=== PATIENT | female | born 1965 | race Caucasian/White ===

== ENCOUNTER 2023-02-06 05:55 | Observation (INO) ==
--- NOTE | 2023-01-24 09:05 | PAT Medication Instructions ---
Medication Instructions Date of Service January 24, 2023 Home Medications amlodipine 5 mg-benazepril 10 mg capsule 1 cap PO QAM cholecalciferol (vitamin D3) 50 mcg (2,000 unit) capsule 50 mcg PO QAM cyanocobalamin (vitamin B-12) 1,000 mcg/mL injection solution 1,000 mcg IM Q30D metoprolol succinate 50 mg tablet,extended release 24 hr 50 mg PO QAM omeprazole 20 mg capsule,delayed release 20 mg PO QAM aspirin 81 mg tablet,delayed release 81 mg PO QAM calcium carbonate 600 mg-vitamin D3 5 mcg (200 unit) tablet 1 tab PO QAM fluticasone fur. 100 mcg-umeclid 62.5 mcg-vilant 25 mcg inhalat.powder (Trelegy Ellipta) 1 inh inhalation QAM lisinopril 20 mg tablet 20 mg PO QAM tirzepatide 5 mg/0.5 mL subcutaneous pen injector (Mounjaro) 5 mg subcut Q7D ASK your prescriber and surgeon aspirin 81 mg tablet,delayed release 81 mg PO QAM DO NOT take the morning of surgery amlodipine 5 mg-benazepril 10 mg capsule 1 cap PO QAM cholecalciferol (vitamin D3) 50 mcg (2,000 unit) capsule 50 mcg PO QAM cyanocobalamin (vitamin B-12) 1,000 mcg/mL injection solution 1,000 mcg IM Q30D calcium carbonate 600 mg-vitamin D3 5 mcg (200 unit) tablet 1 tab PO QAM lisinopril 20 mg tablet 20 mg PO QAM Take morning of surgery With a small sip of water, OTHERWISE NOTHING TO EAT OR DRINK AFTER MIDNIGHT: metoprolol succinate 50 mg tablet,extended release 24 hr 50 mg PO QAM omeprazole 20 mg capsule,delayed release 20 mg PO QAM fluticasone fur. 100 mcg-umeclid 62.5 mcg-vilant 25 mcg inhalat.powder (Trelegy Ellipta) 1 inh inhalation QAM Other Notes Stop 7 days before surgery tirzepatide 5 mg/0.5 mL subcutaneous pen injector (Mounjaro) 5 mg subcut Q7D If you have any questions please call us at [phone] or [phone] or [phone] or [phone]
--- NOTE | 2023-01-26 11:17 | Anesthesiology Consultation ---
Date of Service January 26, 2023 Assessment & Plan (1) Encounter for pre-operative examination: - Check BSG AM DOS - COVID screening: Per assessment on 01/26: No known COVID-19 positive contacts or current COVID-19 related symptoms. No recent Covid positive test result. - Mounjaro instructions: Patient taking for prediabetes. She was advised to hold 7 days prior to surgery. Chart Review Chart Review: Acceptable Risk for Surgery and Patient seen in Pre Admission Testing Teaching & Discussion Pre-Anesthesia Teaching/Discussion Notes: Instructed NPO after midnight before surgery,except medications with 15 cc of water. Medication instructions provided according to the PAT guidelines. History Surgery Operation Date: 02/06/23 08:30 Proposed Procedures p Laparoscopic Right Radical Hand Assisted Nephrectomy - Rudy Hairston MD Height/Weight Height: 5 ft 4 in Weight: 115 kg Allergies Allergy/AdvReac Type Severity Reaction Status Date / Time Sulfa (Sulfonamide Allergy Mild Rash Verified 01/23/23 16:31 Antibiotics) Medications Home Medications Medication Instructions Recorded Confirmed Last Taken amlodipine 5 mg-benazepril 10 mg 1 cap PO QAM 11/14/22 01/23/23 01/14/23 capsule cholecalciferol (vitamin D3) 50 50 mcg PO QAM 11/14/22 01/23/23 01/14/23 mcg (2,000 unit) capsule cyanocobalamin (vitamin B-12) 1,000 mcg IM Q30D 11/14/22 01/23/23 12/23/22 1,000 mcg/mL injection solution metoprolol succinate 50 mg 50 mg PO QAM 11/14/22 01/23/23 01/14/23 tablet,extended release 24 hr omeprazole 20 mg capsule,delayed 20 mg PO QAM 11/14/22 01/23/23 01/14/23 release aspirin 81 mg tablet,delayed 81 mg PO QAM 01/10/23 01/23/23 01/12/23 release calcium carbonate 600 mg-vitamin 1 tab PO QAM 01/10/23 01/23/23 01/14/23 D3 5 mcg (200 unit) tablet fluticasone fur. 100 mcg-umeclid 1 inh inhalation QAM 01/10/23 01/23/23 01/14/23 62.5 mcg-vilant 25 mcg inhalat.powder (Trelegy Ellipta) lisinopril 20 mg tablet 20 mg PO QAM 01/10/23 01/23/23 01/14/23 tirzepatide 5 mg/0.5 mL 5 mg subcut Q7D 01/10/23 01/23/23 01/12/23 subcutaneous pen injector (Mounjaro) Past Medical History Medical History (Updated 01/26/23 @ 11:32 by Latoya Qiu) GERD (gastroesophageal reflux disease) History of kidney cancer Recently dx Hypertension Morbid obesity with BMI of 40.0-44.9, adult Pre-diabetes Taking Mounjaro Sleep apnea No device Exercise / Class Metabolic Activity III < 4 Walking/Shop/Light housework (one FS (no CP, + SOB)) Past Family History Family History Mother Skin cancer Diabetes Hypertension Father Skin cancer Hypertension Other No family history of adverse response to anesthesia Past Surgical History Surgical History History of bilateral tubal ligation History of endometrial ablation Hx of colonoscopy Colonoscopy (01/15/23): MAC at [facility] [place] teeth extracted Past Anesthesia History No Family Hx of Anesthesia Complications and Other (post-op chills/dizziness/lightheadedness x1 episode (after most procedure/GHS EUS)) History of PONV No Hx of PONV and No Hx of Motion Sickness Social History Smoking Status: Current every day smoker tobacco type: cigarettes Do You Dip or Chew Tobacco: No Smoking End Date: Recently quit 01/23/23 (previous 10-12 cigs/day) Hx Alcohol Use: Yes Alcohol type: wine alcohol intake frequency: holidays/special occasions only Hx Substance Use: No substance use type: does not use Review of Systems Patient denies chest pain, shortness of breath, fever, chills, cough, wheezing, palpitations. Physical Exam Vital Signs VITALS BP 116/75 P 69 TEMP 98.0 SP02 97%RA RESP 16 PHYSICAL Full cervical extension range of motion. Full TMJ range of motion. TMD 3.5 finger breaths Mallampati Score 2 Dentition: missing sides Lungs: clear throughout to auscultation Cardiac: regular rate and rhythm, no murmurs noted Spine: normal Carotid arteries: negative bruit Extremities: no LE edema Short, thick neck Lab Results Anesthesia Preop Results Results Anesthesia Widget: WBC 10.01 K/ul (4.8-10.8) 01/26/23 Hgb 13.9 g/dl (12.0-16.0) 01/26/23 Hct 41.9 % (37.0-47.0) 01/26/23 Plt 237 K/uL (130-400) 01/26/23 Na 139 mmol/L (136-145) 01/26/23 K 4.3 mmol/L (3.5-5.1) 01/26/23 Cl 105 mmol/L (98-107) 01/26/23 CO2 27 mmol/L (21-32) 01/26/23 BUN 16 mg/dl (6-23) 01/26/23 Creat 0.75 mg/dl (0.6-1.2) 01/26/23 Glucose Level 74 mg/dl (70-99(Fasting)) 01/26/23 PT 10.3 Seconds (9.0-12.0) 12/19/22 PTT 29.0 Seconds (21.0-31.0) 12/19/22 INR 0.9 (0.9-1.1) 12/19/22 Blood Type B Positive 01/26/23 Antibody Screen NEGATIVE 01/26/23 Testing Electrocardiogram Date: 01/26/23 Findings: + NSR @ (66) Other Testing CT Abd/Pelvis Date: 11/03/22 Large heterogeneous enhancing mass involving the right kidney measuring 8.1 x 8.2 x 9.7 cm. Finding is most suggestive of underlying malignancy such as renal cell carcinoma and should be considered renal cell carcinoma until proven otherwise.Shotty periportal adenopathy, largest periportal lymph node 2.4 cm maximal diameter. 8 mm hyperattenuating exophytic Focus inferior pole cortex of the left kidney posteriorly. This may represent a Cyst with proteinaceous debris or blood that does not demonstrate significant enhancement on arterial or portal vein phase. CT Chest/lung Date: 10/26/22 6 x 5 mm maximum crosssection nodulelike atelectasis in the right costophrenic angle. The remainder of the lung cline are clear with no other indications of possible nodule. Large airways are patent. Right renal lesion, hyperdense cyst versus neoplasm. CT of the abdomen and pelvis recommended using the renal mass protocol.
[2023-02-06] MEDS ORDERED: LR 15ML/HR IV SCH (06:00)
[2023-02-06] MEDS ORDERED: PROPOFOL IV EMULSION 10 MG/ML 20 ML VIAL IV ONE (06:36)
[2023-02-06] MEDS ORDERED: MIDAZOLAM HCL 1 MG/ML 2ML VIAL ONE (06:36)
[2023-02-06] MEDS ORDERED: ROCURONIUM BROMIDE 10 MG/ML 5 ML VIAL IV ONE (06:36)
[2023-02-06] MEDS ORDERED: LIDOCAINE 2% 2 ML VIAL/AMP(20MG/ML) INFIL ONE (06:36)
[2023-02-06] MEDS ORDERED: fentaNYL citrate PF 100 MCG/2 ML VIAL ONE ×2 (06:36→09:19)
[2023-02-06] MEDS ORDERED: DEXAMETHASONE SOD INJ 4 MG/ML VIAL ONE (06:36)
[2023-02-06] MEDS ORDERED: ONDANSETRON INJ 2 MG/ML 2 ML VIAL ONE (06:36)
[2023-02-06] MEDS ORDERED: SUGAMMADEX SODIUM 200 MG/2 ML VIAL IV ONE (06:40)
[2023-02-06] MEDS ORDERED: MANNITOL 25% 12.5 GM/50 ML VIAL IV ONE (06:45)
[2023-02-06] MEDS ORDERED: HEPARIN SOD (PORCINE) 1000 UNIT/ML ONE (06:49)
[2023-02-06] MEDS ORDERED: KETAMINE 50 MG/5 ML SYRINGE ONE (06:51)
[2023-02-06] MEDS ORDERED: PROMETHAZINE HCL 6.25 MG in SODIUM CHLORIDE 0.9% 50 ML IV PRN (07:06)
[2023-02-06] MEDS ORDERED: ATROPINE SULFATE 0.1 MG/ML 10ML SYR IV PRN (07:06)
[2023-02-06] MEDS ORDERED: ONDANSETRON INJ 2 MG/ML 2 ML VIAL IV PRN ×2 (07:06→11:31)
--- NOTE | 2023-02-06 07:27 | History & Physical Bridge Note ---
Date of Service February 06, 2023 History & Physical Bridge Note I have examined the patient, reviewed the History & Physical and in the interval since the performance of the History & Physical I have noted the following changes of clinical significance: no changes noted
[2023-02-06] MEDS ORDERED: BUPIVACAINE 0.5 % 5 MG/1 ML MPF 30ML VIAL ONE (07:30)
[2023-02-06] MEDS ORDERED: SURGICEL ABSORB HEMOSTAT 2IN X 14IN TOP ONE (08:38)
[2023-02-06] MEDS ORDERED: ePHEDrine sulfate 50 MG/ML AMP ONE (08:46)
--- NOTE | 2023-02-06 10:15 | Operative Report ---
PG Post Operative Report Pre & Post Diagnosis Operation Date: 02/06/23 07:30 Pre-Op Diagnosis: Right Clear Cell Renal Cell Carcinoma Post-Op Diagnosis: Right Clear Cell Renal Cell Carcinoma I identified the patient and participated in the time-out.: Yes Procedure Operation Date: 02/06/23 07:30 Actual Procedures p Laparoscopic Hand Assisted Right Radical Nephrectomy(Right) - Rudy Hairston MD Surgeon Rudy Hairston MD Cell Room Operator Aria Arshad Estimated Blood Loss 50 Findings Consistent with Post-Op Diagnosis Specimens Right kidney Description of Procedure Patient was identified in the preoperative holding area, appropriate informed consents reviewed and completed and she was transferred to the operating suite. Upon arrival she received appropriate preoperative antibiotics. She was placed in the left side down right side up lateral decubitus position and padded and braced appropriately. Bed was flexed. Her imaging was brought up on the in room monitors. After induction of general anesthesia tentative port locations were marked on the skin. A Mitchell style right lower quadrant incision was made and carried through the superficial tissues until the external oblique fascia was identified. This was opened sharply for the length of the incision (8 cm). I then dissected through the internal oblique fascia in the same fashion. Ultimately opened the transversalis and sharply pierced into the peritoneum and performed a finger sweep. There was omentum immediately below my peritoneal opening. I extended my peritoneal opening for the length of the incision before placing a GelPort. We then insufflated the abdomen. A 12 mm port was placed through the GelPort for full inspection. She has a large liver which was draping over the tentative surgical field. This did not impact port placement and 2 additional 12 mm ports were placed in the mid costal line with the superior port approximately 5 cm below the costal margin and the other approximately 8 cm inferior to the other port. I ultimately placed a 5 mm liver retracting port in the subxiphoid space as well as a 12 mm clothing sales assistant port closer to the midline approximately 8 cm above the umbilicus. We then began our dissection. I medialized the colon by incising the white line of Toldt and rotating the kidney medially. This exposed the underlying duodenum which was then kocherized. The IVC was immediately identified behind the duodenum. I could identify the gonadal vein piercing into the IVC and I was able to dissect lateral to it and onto a plane on the psoas muscle. I was able to then elevate the kidney and dissect up the lateral border of the IVC until I encountered the inferior aspect of the renal vein. The renal vein was then dissected and exposed. A passage was made superior to it. I then palpated the renal artery immediately posterior to the renal vein. I collected these and I packet of tissue and skeletonized them. I then passed a stapler device and stapled the artery and vein en bloc. An additional staple load was placed between the superior medial aspect of the kidney and the adrenal gland. We then continued our dissection around the lateral portion of the kidney by incising the remaining peritoneal attachments as well as mobilizing the liver off of the superior and anterior portion of the kidney and incising the peritoneum. At the inferior cone of Gerota's fascia I was able to control the ureter and the remaining fat with a solitary staple load. At that point we freed her kidney by incising the Gerota's attachments around the perimeter of the kidney. The specimen was extracted through the HandPort. Hemostasis was excellent. The specimen was passed off the table for pathological analysis. We then closed the 12 mm ports utilizing a 0 Vicryl and a Osmar-Sunil device. The main incision was closed in multiple layers with reapproximation of the transversalis fascia utilizing a running 0 Vicryl followed by closure of the external oblique and internal oblique fascia is respectively with the 0 Vicryl each. All incisions were infiltrated with half percent Marcaine and closed with 4-0 Monocryl. Dermabond was placed over the incisions. She was reversed of anesthesia and taken the recovery room in stable condition. A Marcelino catheter was left in place. There were no complications. Aria Arshad assisted from incision to closure I attest to the content of the Intraoperative Record and any orders documented therein. Any exceptions are noted below.
[2023-02-06 10:23] LABS: Basophils # (auto) 0.03 K/uL (0.00-0.20); Basophils % (auto) 0.3 %; Eosinophils # (auto) 0.12 K/uL (0.00-0.50); Eosinophils % (auto) 1.1 %; Hematocrit (blood only) 40.8 % (37.0-47.0); Hemoglobin 13.4 g/dl (12.0-16.0); Immature Granulocytes % (auto) 0.9 %; Lymphocytes # (auto) 1.38 K/uL (1.20-3.40); Lymphocytes % (auto) 12.2 %; Mean Corpuscular Hemoglobin 27.9 pg (25.0-34.0); Mean Corpuscular Hgb Conc 32.8 g/dL (32.0-36.0); Mean Platelet Volume 10.1 fL (9.4-12.4); Monocytes % (auto) 2.7 %; Neutrophils # (auto) 9.37 K/uL (1.40-6.50); Neutrophils % (auto) 82.8 %; Platelet Count 216 K/uL (130-400); RDW Coefficient of Variation 13.8 % (11.5-14.5); RDW Standard Deviation 42.8 fL (36.4-46.3)
[2023-02-06] MEDS: HYDROmorphone INJ 1 MG/ML SYRINGE IV PRN ×4 (10:27→10:42)
[2023-02-06 10:47] LABS: Calcium 8.6 mg/dl (8.6-10.3); Creatinine Clr Calc Pharmacy 75.9 ml/min; Est GFR (African American) 71.4 ml/min; Est GFR (Non-African American) 61.6 ml/min; Potassium 4.7 mmol/L (3.5-5.1)
[2023-02-06] MEDS ORDERED: oxyCODONE HCL IR 5 MG TAB (IMMEDIATE RELEASE) PO PRN ×2 (11:31)
[2023-02-06] MEDS ORDERED: MoRPHine SULFATE 2 MG/ML CARP IV PRN (11:31)
[2023-02-06] MEDS ORDERED: MoRPHine SULFATE 4 MG/ML 1 ML CARP\\VIAL IV PRN (11:31)
[2023-02-06] MEDS ORDERED: PHARMACY GLYCEMIC MGMT CONSULT PRN (11:31)
[2023-02-06] MEDS ORDERED: GLUCOSE 10 TAB/TUBE PO PRN (11:45)
[2023-02-06] MEDS ORDERED: GLUCAGON FOR INJ 1 MG VIAL IM PRN (11:45)
[2023-02-06] MEDS ORDERED: CARBOHYDRATES FOR HYPOGLYCEMIA PO PRN (11:45)
[2023-02-06] MEDS ORDERED: DEXTROSE 50% 50 ML SYRINGE IV PRN (11:45)
[2023-02-06] MEDS ORDERED: GLUCOSE 40% GEL 15 GM TUBE PO PRN (11:45)
--- NOTE | 2023-02-06 11:47 | Pharmacy Report ---
Pharmacy Glycemic Short Note 2 - Date of Service February 06, 2023 - Glycemic Short BSG Results (Last 24 hours): 02/06/23 02/06/23 06:29 09:56 Glucose 114 H POC Glucose 111 H OUTPATIENT ANTIDIABETIC REGIMEN: * Mounjaro 5 mg SC weekly HbA1c ordered for 02/07/23 ASSESSMENT: * is a 57 year old female POD #0 s/p right radical nephrectomy * Received 4 mg IV dexamethasone in OR * Reported history of prediabetes, HbA1c is pending for tomorrow * Preop BSG of 111 mg/dL * Clear liquid diet ordered at this time PLAN FOR INPATIENT GLYCEMIC CONTROL: * Basal insulin * hold at this time * Bolus insulin * NovoLog per scale ACHS or Q6hrs while NPO * Goal Range: Low 110 mg/dL - High 140 mg/dL * Correction Factor: 30 mg/dL/unit * Nutritional / Prandial insulin per carb ratio of 1 unit per 10 grams CHO consumed
[2023-02-06] MEDS: LACTATED RINGER'S 1,000 ML IV SCH ×2 (12:03→22:11)
[2023-02-06] MEDS: INSULIN ASPART PER UNIT CHARGE SC SCH ×3 (12:37→21:12)
[2023-02-06] MEDS: ACETAMINOPHEN 325 MG TAB PO SCH ×3 (12:40→23:38)
--- NOTE | 2023-02-06 14:06 | Anesthesiology Progress Note ---
Date of Service February 06, 2023 Anesthesia Post Procedure Vital Signs Vital Signs: Temp Pulse Pulse Resp BP Pulse Ox O2 Del Method 02/06/23 13:20 36.6 C 75 16 154/81 H 96 Nasal Cannula 02/06/23 12:30 Nasal Cannula 02/06/23 12:23 36.4 C L 73 16 149/77 H 97 Nasal Cannula 02/06/23 11:50 36.4 C L 75 14 133/72 95 Nasal Cannula 02/06/23 11:20 36.8 C 80 16 131/73 94 Nasal Cannula 02/06/23 11:00 36.5 C 79 14 122/74 93 Nasal Cannula 02/06/23 10:50 80 13 121/61 93 Nasal Cannula 02/06/23 10:40 79 17 125/76 90 Nasal Cannula 02/06/23 10:30 83 17 125/70 93 Oxymask 02/06/23 10:20 84 25 H 123/71 94 Oxymask 02/06/23 10:10 83 24 122/57 L 93 Oxymask 02/06/23 10:00 82 23 116/57 L 94 Oxymask 02/06/23 09:51 37.0 C 81 26 H 104/57 L 91 Oxymask 02/06/23 06:28 36.8 C 87 18 154/76 H 92 Room Air O2 Flow Rate 02/06/23 13:20 2 02/06/23 12:30 4 02/06/23 12:23 2 02/06/23 11:50 4 02/06/23 11:20 4 02/06/23 11:00 4 02/06/23 10:50 4 02/06/23 10:40 4 02/06/23 10:30 6 02/06/23 10:20 10 02/06/23 10:10 12 02/06/23 10:00 12 02/06/23 09:51 6 02/06/23 06:28 Pain Intensity Right Abdomen: Pain Intensity: 8 Transfer of Care Handoff Completed per policy Notes Mental Status: alert / awake / arousable Patient Amnestic to Procedure: Yes Nausea / Vomiting: adequately controlled Pain: adequately controlled Airway Patency, RR, SpO2: stable & adequate BP & HR: stable & adequate Hydration State: stable & adequate Anesthetic Complications: no major complications apparent
[2023-02-06] MEDS: ceFAZolin 2000MG 2,000 MG/15 ML SYR IV SCH ×2 (15:59→23:39)
[2023-02-06] MEDS: DOCUSATE SODIUM 100 MG CAP PO SCH (20:11)
[2023-02-06] MEDS: HEPARIN SOD 5,000 UNIT/0.5 ML VIAL SQ SCH (20:13)
[2023-02-07] MEDS: ACETAMINOPHEN 325 MG TAB PO SCH ×4 (05:13→23:52)
[2023-02-07] MEDS: lisinopril 20 MG TAB PO SCH (07:56)
[2023-02-07] MEDS: METOPROLOL SUCC 50MG EXT REL TAB PO SCH (07:56)
[2023-02-07] MEDS: DOCUSATE SODIUM 100 MG CAP PO SCH ×2 (07:56→19:51)
[2023-02-07] MEDS: HEPARIN SOD 5,000 UNIT/0.5 ML VIAL SQ SCH ×2 (07:57→19:51)
[2023-02-07] MEDS: amLODIPine BESYLATE 5 MG TAB PO SCH (07:57)
[2023-02-07] MEDS: ENALAPRIL MALEATE 10 MG TAB PO SCH (07:57)
[2023-02-07] MEDS: PANTOprazole 40 MG TAB PO SCH (07:57)
[2023-02-07] MEDS: LACTATED RINGER'S 1,000 ML IV SCH (08:03)
--- NOTE | 2023-02-07 08:07 | Urology Progress Note ---
Date of Service February 07, 2023 Assessment & Plan (1) Clear cell renal cell carcinoma: Plan Postop day #1 status post right radical nephrectomy Progressing appropriately Awaiting labs this morning Pending her improvement throughout the day today we will plan for discharge either later today or tomorrow but no lema Admission and Anticipated Discharge Date Admission Date: February 06, 2023 Subjective No major issues overnight Expected levels of pain Was out of bed yesterday but has not ambulated much Anxious to get out of bed this morning Labs are still pending Physical Exam Physical Exam: Incisions appropriate Abdomen soft, appropriately tender Results & Data Vital Signs (Past 12 Hours) Vital Signs Temp Pulse Resp BP Pulse Ox O2 Del Method 02/07/23 03:08 36.8 C 72 18 145/78 H 95 Room Air 02/06/23 22:46 36.6 C 67 18 157/78 H 93 Room Air 02/06/23 20:49 36.5 C 72 20 182/80 H 93 Room Air PG Care Time/CCT Total # of Minutes Spent Total Time Spent with Patient: Total time spent is greater than 50% in coordination of care (as documented) at patient's floor/unit and/or counseling patient: Coding Level of Care Code None Diagnoses Clear cell renal cell carcinoma C64.9
[2023-02-07] MEDS: INSULIN ASPART PER UNIT CHARGE SC SCH ×4 (08:37→21:30)
[2023-02-07 08:47] LABS: Basophils # (auto) 0.01 K/uL (0.00-0.20); Basophils % (auto) 0.1 %; Hematocrit (blood only) 40.2 % (37.0-47.0); Hemoglobin 13.7 g/dl (12.0-16.0); Immature Granulocytes # (auto) 0.21 K/uL (0.01-0.20); Immature Granulocytes % (auto) 1.2 %; Lymphocytes # (auto) 1.53 K/uL (1.20-3.40); Mean Corpuscular Hemoglobin 28.1 pg (25.0-34.0); Mean Corpuscular Hgb Conc 34.1 g/dL (32.0-36.0); Mean Corpuscular Volume 82.4 fL (80.0-100.0); Mean Platelet Volume 9.9 fL (9.4-12.4); Monocytes # (auto) 0.74 K/uL (0.11-0.59); Monocytes % (auto) 4.3 %; Neutrophils # (auto) 14.54 K/uL (1.40-6.50); Neutrophils % (auto) 85.4 %; Platelet Count 237 K/uL (130-400); RDW Coefficient of Variation 13.6 % (11.5-14.5); RDW Standard Deviation 40.1 fL (36.4-46.3); Red Blood Count 4.88 M/uL (4.20-5.40); White Blood Count 17.03 K/ul (4.8-10.8)
[2023-02-07 09:08] LABS: Calcium 9.3 mg/dl (8.6-10.3); Creatinine Clr Calc Pharmacy 67.2 ml/min; Est GFR (African American) 61.6 ml/min; Est GFR (Non-African American) 53.2 ml/min; Potassium 4.6 mmol/L (3.5-5.1)
[2023-02-07 09:11] LABS: Estimated Average Glucose 131 mg/dl; Hemoglobin A1C 6.2 % (4.5-5.6)
--- NOTE | 2023-02-07 13:28 | Discharge Summary ---
Date of Service February 07, 2023 Admission HPI Per Admitting Provider 57-year-old female with a large right renal mass that has been biopsied proving clear-cell renal cell carcinoma here for right radical nephrectomy. Admission Exam Per Admitting Provider Constitutional well developed and well nourished Neck neck nontender Respiratory normal respiratory effort; no respiratory distress and does not use accessory muscles Cardiovascular Rate/Rhythm: regular rate Vessels: radial pulses present Extremities: no edema Gastrointestinal (Abdomen) Inspection/Auscultation: abdomen normal to inspection Percussion/Palpation: abdomen soft; abdomen nontender and no guarding Musculoskeletal Head/Neck/Chest: normocephalic and head atraumatic Extremities: extremities normal to inspection Skin no rashes and no lesions Trauma: no evidence of skin trauma Neurologic awake; not obtunded Speech / Cognition: normal speech Motor/Sensory: no tremor Psychiatric Orientation: alert and oriented x 3 Lymphatic no lymphadenopathy Principal Diagnosis Clear cell renal cell carcinoma Discharge Exam General: obese, well-appearing, no acute distress HEENT: Normocephalic, mucous membranes moist Pulmonary: Nonlabored respirations Abdomen: Nondistended Extremities: Moves all 4 spontaneously Neuro: No gross deficits Psych: alert and oriented, normal mood Skin: Incisions C/D/I, some ecchymosis around right lateral incision Discharge Data Allergies Allergy/AdvReac Type Severity Reaction Status Date / Time Sulfa (Sulfonamide Allergy Mild Rash Verified 01/23/23 16:31 Antibiotics) Procedures Performed Operation Date: 02/06/23 07:30 Actual Procedures p Laparoscopic Hand Assisted Right Radical Nephrectomy(Right) - Rudy Hairston MD Hospital Course (1) Clear cell renal cell carcinoma: Plan - Patient POD#2 s/p right nephrectomy for renal malignancy - Doing well, progressing as expected - Afebrile, post op lab work reviewed and as expected - Pain adequately controlled with scheduled Tylenol - Tolerating regular diet, passing flatus - She has been ambulating - Incisions appropriate - Voiding without difficulty - Expected clinical course reviewed, all questions answered - Plan for discharge later this morning - Outpatient follow-ups in place Total Time Total Time Spent Total Time Spent (In Minutes): 29 Discharge Plan Discharge Items Patient Disposition: Home - Self-Care Reason For Visit: Clear Cell Renal Cell Carcinoma Discharge Diagnosis: Clear cell renal cell carcinoma Activity: Per Instructions section Lifting: No more than 10 pounds Bathing Comment: Okay to shower after discharge, no tub bath or soaking Sexual Activity: Wait until after follow-up appointment Exercise/Sports: Wait until after follow-up appointment Driving/Machine Use: No driving while taking prescription pain medication Non-emergency contact: Surgeon and Urologist Call non-emergency contact if: your pain is not controlled, you have a fever, your temperature is above 101, your wound has increased redness, your wound has increased drainage and your wound pain has increased Follow-up/Referrals: Rudy Hairston MD [Physician] - 02/19/23 11:00 am Jannet Portillo C.R.N.P. [Primary Care Provider] - Diet: Regular Addtl Attending Provider Instructions: Please take all medications as prescribed and keep all follow-ups as scheduled. Please call our office at [phone] with any questions, concerns or need to reschedule appointments for any reason. We are happy to assist you. A prescription for pain medication (Percocet) was sent to your pharmacy. Take as directed for breakthrough pain. Do not drive or operate machinery while taking this medication. Percocet contains Acetaminophen (Tylenol). Do not exceed more than 3000 mg of Tylenol per 24 hours. Recovering at home: We recommend having someone with you for the first few days after surgery to help care for you. It is okay to shower tomorrow. Please avoid swimming, bathing or using hot tub until incisions are well healed. Avoid driving until you are not requiring pain medication any further. Walk at least a few times a day. Increase your distance, as you feel able. Stairs in your home are okay. Please avoid strenuous or sexual activity until your follow-up. We recommend using stool softener (i.e. Colace) to prevent constipation and straining, especially the first two weeks post operatively. Call [facility] at [phone] if you experience: Chest pain or trouble breathing (call 251 or go to the hospital). Fever of 101F or higher Symptoms of infection at incision site, including redness or swelling, warmth, or bad-smelling drainage If you have catheter, and you notice: o Bloody urine or drainage that is dark red or has large clots (Please remember a small amount of blood is normal) o No drainage from the catheter for more than 6 hours o The catheter comes out of your bladder Pain that is not controlled with medicines Pending Studies at Discharge: Yes (pathology) Stand-Alone Forms: My [facility], Pain - Opioid Pain Management, Smoking Cessation Medications and DC Order Prescriptions: New docusate sodium [Colace] 100 mg capsule 100 mg PO BID Qty: 60 0RF Rx Instructions: Take twice daily for 2 weeks, then as needed for constipation. oxycodone-acetaminophen [Percocet] 5-325 mg tablet 1 tab PO TID PRN (Reason: pain) Qty: 10 0RF Continued cyanocobalamin (vitamin B-12) 1,000 mcg/mL solution 1,000 mcg IM Q30D omeprazole 20 mg capsule,delayed release(DR/EC) 20 mg PO QAM metoprolol succinate 50 mg tablet extended release 24 hr 50 mg PO QAM amlodipine-benazepril 5-10 mg capsule 1 cap PO QAM cholecalciferol (vitamin D3) 50 mcg (2,000 unit) capsule 50 mcg PO QAM lisinopril 20 mg tablet 20 mg PO QAM calcium carbonate-vitamin D3 600 mg-5 mcg (200 unit) Tablet 1 tab PO QAM aspirin 81 mg Tablet,Delayed Release (Dr/Ec) 81 mg PO QAM Trelegy Ellipta 100-62.5-25 mcg Blister With Device 1 inh INHALATION QAM Mounjaro 5 mg/0.5 mL Pen Injector 5 mg SUBCUT Q7D Discharge Orders: Discharge Order (Routine); Ordered 02/08/23 Ordered By: Aria Francois/Other Patient Handouts: Prediabetes, 5 Steps for Eating Healthier Admission Data Admit Date/Time: 02/06/23 09:52 Attending Provider: Rudy Hairston Admit Provider: Rudy Hairston Primary Care Provider: Jannet Portillo Other Interventions: Discharge Summary Assessment (RN) Last Done: 02/08/23 10:05 Coding Level of Care Code 51024 IN/OBS DISCH 30 MIN/LESS Diagnoses Clear cell renal cell carcinoma C64.9
[2023-02-08] MEDS: ACETAMINOPHEN 325 MG TAB PO SCH (05:29)
[2023-02-08 06:25] LABS: Basophils # (auto) 0.06 K/uL (0.00-0.20); Basophils % (auto) 0.5 %; Eosinophils # (auto) 0.15 K/uL (0.00-0.50); Eosinophils % (auto) 1.2 %; Hematocrit (blood only) 39.4 % (37.0-47.0); Hemoglobin 13.3 g/dl (12.0-16.0); Immature Granulocytes # (auto) 0.11 K/uL (0.01-0.20); Immature Granulocytes % (auto) 0.9 %; Lymphocytes # (auto) 2.29 K/uL (1.20-3.40); Lymphocytes % (auto) 19.1 %; Mean Corpuscular Hemoglobin 27.9 pg (25.0-34.0); Mean Corpuscular Hgb Conc 33.8 g/dL (32.0-36.0); Mean Corpuscular Volume 82.8 fL (80.0-100.0); Mean Platelet Volume 9.9 fL (9.4-12.4); Monocytes # (auto) 0.81 K/uL (0.11-0.59); Monocytes % (auto) 6.7 %; Neutrophils % (auto) 71.6 %; Platelet Count 218 K/uL (130-400); RDW Coefficient of Variation 13.9 % (11.5-14.5); RDW Standard Deviation 41.6 fL (36.4-46.3); Red Blood Count 4.76 M/uL (4.20-5.40); White Blood Count 12.02 K/ul (4.8-10.8)
[2023-02-08 06:54] LABS: BUN Creatinine Ratio 17.3 (10-20); Calcium 8.9 mg/dl (8.6-10.3); Creatinine Clr Calc Pharmacy 59.8 ml/min; Est GFR (African American) 53.5 ml/min; Est GFR (Non-African American) 46.2 ml/min; Potassium 4.1 mmol/L (3.5-5.1)
[2023-02-08] MEDS: amLODIPine BESYLATE 5 MG TAB PO SCH (08:07)
[2023-02-08] MEDS: METOPROLOL SUCC 50MG EXT REL TAB PO SCH (08:07)
[2023-02-08] MEDS: PANTOprazole 40 MG TAB PO SCH (08:07)
[2023-02-08] MEDS: lisinopril 20 MG TAB PO SCH (08:07)
[2023-02-08] MEDS: DOCUSATE SODIUM 100 MG CAP PO SCH (08:08)
[2023-02-08] MEDS: ENALAPRIL MALEATE 10 MG TAB PO SCH (08:08)
[2023-02-08] MEDS: HEPARIN SOD 5,000 UNIT/0.5 ML VIAL SQ SCH (08:08)
[2023-02-08] MEDS: INSULIN ASPART PER UNIT CHARGE SC SCH (08:10)
--- NOTE | 2023-02-08 09:27 | Urology Progress Note ---
Date of Service February 08, 2023 Assessment & Plan (1) Clear cell renal cell carcinoma: (2) Renal neoplasm: Plan - Patient POD#2 s/p right nephrectomy for renal malignancy - Doing well, progressing as expected - Afebrile, post op lab work reviewed and as expected - Pain adequately controlled with scheduled Tylenol - Tolerating regular diet, passing flatus - She has been ambulating - Incisions appropriate - Voiding without difficulty - Expected clinical course reviewed, all questions answered - Plan for discharge later this morning - Outpatient follow-ups in place Admission and Anticipated Discharge Date Admission Date: February 06, 2023 Subjective Patient seen and examined at bedside this morning, chart reviewed No acute issues overnight She has been ambulating around room and hallway Tolerating diet, passing flatus Pain adequately controlled with scheduled Tylenol Denies nausea, vomiting, fever or chills Review of Systems Constitutional: as per Subjective / HPI Gastrointestinal: as per Subjective / HPI Genitourinary: as per Subjective / HPI Physical Exam Physical Exam: General: obese, well-appearing, no acute distress HEENT: Normocephalic, mucous membranes moist Pulmonary: Nonlabored respirations Abdomen: Nondistended, soft, appropriately tender near incisions Extremities: Moves all 4 spontaneously Neuro: No gross deficits Psych: alert and oriented, normal mood Skin: Incisions well approximated, C/D/I, mild ecchymosis around right lateral incision Results & Data Vital Signs (Past 12 Hours) Vital Signs Temp Pulse Resp BP Pulse Ox O2 Del Method 02/08/23 07:00 36.7 C 67 18 137/75 96 Room Air PG Care Time/CCT Total # of Minutes Spent Total Time Spent with Patient: Total time spent is greater than 50% in coordination of care (as documented) at patient's floor/unit and/or counseling patient: Coding Level of Care Code None Diagnoses Clear cell renal cell carcinoma C64.9 Renal neoplasm D49.519
== END 2023-02-08 11:27 | disposition home or self-care (01) | DRG 658 ==
LOC: ASU 05:55 → INTOOBSV 09:52 → 3N 09:52

== ENCOUNTER 2025-04-27 17:05 | Observation (INO) ==
[2025-04-27 17:53] LABS: Hematocrit (blood only) 36.9 % (37.0-47.0); Hemoglobin 12.9 g/dL (12.0-16.0); Immature Granulocytes # (auto) 0.04 K/uL (0.01-0.20); Immature Granulocytes % (auto) 0.7 %; Mean Corpuscular Hemoglobin 29.1 pg (25.0-34.0); Mean Corpuscular Volume 83.1 fL (80.0-100.0); Platelet Count 197 K/uL (130-400); RDW Standard Deviation 40.0 fL (36.4-46.3); Red Blood Count 4.44 M/uL (4.20-5.40); White Blood Count 5.80 K/ul (4.8-10.8)
[2025-04-27 18:10] LABS: Alanine Aminotransferase 19 U/L (7-52); Albumin Globulin Ratio 1.7 (0.9-2); Albumin Level 3.8 gm/dl (3.4-5.0); Alkaline Phosphatase 51 U/L (34-104); Anion Gap 4 (3-11); Bilirubin,Total 0.7 mg/dl (0.2-1.0); Blood Urea Nitrogen 10 mg/dl (6-23); Calcium 9.3 mg/dl (8.6-10.3); Carbon Dioxide 30 mmol/L (21-32); Chloride 93 mmol/L (98-107); Globulin 2.3 gm/dl (2.5-4.0); Glucose 100 mg/dl (70-99(Fasting)); Potassium 4.7 mmol/L (3.5-5.1); Sodium 127 mmol/L (136-145); Total Protein 6.1 gm/dl (6.0-8.3)
[2025-04-27 18:46] LABS: Creatine Kinase 51 U/L (26-192); Magnesium 1.7 mg/dl (1.7-2.4)
[2025-04-27] MEDS: PLASMA-LYTE A 1,000 ML IV ONE (18:49)
[2025-04-27] MEDS: KETOROLAC TROMETHAMINE 15 MG/ML VIAL IV STA (19:07)
--- NOTE | 2025-04-27 19:15 | Emergency Department Note ---
Impression & Plan Hyponatremia, Generalized weakness, Palpable purpura, Adrenal insufficiency ED Provider Note NAME: MIRIAM WARD AGE: 59 SEX: F : 1965 ARRIVES VIA: Walk-In INFORMANT: Patient, , daughter by telephone ED PROVIDER(S): Kelechi Giron DO CHIEF COMPLAINT: weakness HPI: This is a 59-year-old female with the PMHx of renal cell carcinoma s/p nephrectomy, adrenal insufficiency on prolonged steroids with recent cessation, chronic pain disorder, hypothyroidism, hypertension, and GERD presenting to [facility] for further evaluation of generalized weakness. Patient is accompanied by his and daughter who provide additional history. Patient states that she just stopped steroids after a prolonged course for over 2 to 3 years. She states that this was tapered. Patient states that she was also initiated on gabapentin for ongoing pain disorder. Patient states since the time of stopping steroids and initiating gabapentin, she reports severe weakness, brain fog, myalgias and arthralgias. She also reports a rash on her chest and neck. She states that this is a purpleish color. She states it is nonpainful. She states that it is not pruritic. They deny fever or chills. No cough or congestion. Denies chest pain or palpitations. No shortness of breath. They deny abdominal pain, nausea and vomiting. No urinary complaints. No recent changes in bowel movements. Patient denies recent changes in medications or OTC supplements. Patient offers no other complaints, today. ADDITIONAL HISTORY OBTAINED: Per HPI Chronic Medical/Social Conditions Affecting Care: Per HPI PAST MEDICAL HISTORY: See Below PAST SURGICAL HISTORY: See Below FAMILY HISTORY: See Below SOCIAL HISTORY: See Below HOME MEDICATIONS: See Below ALLERGIES: See Below VITALS: See Below PHYSICAL EXAMINATION: GENERAL: Sitting up in bed, alert, well appearing, well nourished, no distress, non-toxic EYE EXAM: normal conjunctiva. PERRL and EOM's grossly intact. OROPHARYNX: no exudate, no erythema, lips, buccal mucosa, and tongue normal and mucous membranes are dry NECK: supple, no nuchal rigidity, no adenopathy, non-tender LUNGS: Clear to auscultation. Normal chest wall mechanics HEART: no murmurs, regular rate, regular rhythm ABDOMEN: abdomen soft, non-tender, no masses, no rebound or guarding. BACK: Back is symmetrical on inspection and there is no deformity, no midline tenderness, no CVA tenderness. SKIN: there is a purpura like rash over the chest and left jaw/neck. UPPER EXTREMITIES: upper extremities are grossly normal. LOWER EXTREMITIES: No pitting edema. NEURO EXAM: Normal sensorium, GCS 15, normal speech, no gross weakness of arms, no gross weakness of legs. MEDICAL DECISION MAKING: Differential diagnoses includes but not limited to adrenal insufficiency, electrolyte derangements, dehydration, polypharmacy, medication side effect In summary, this is a 59 year old female who presented with generalized weakness. Differential as above. Nursing notes and pertinent past medical records reviewed. Vital signs reviewed and the patient is afebrile and HDS. History and presentation revealed prior history of RCC s/p nephrectomy. She was on prolonged steroids that were recently tapered off. Recent labs reviewed with the patient. This shows new hyponatremia that may be contributing to the patient's symptoms today. This also raised suspicion for adrenal insufficiency. Physical examination revealed as above. As a result of my initial evaluation, IV access was established and the patient was placed on CCRM. Therapeutics ordered include IVFR as she appears dehydrated. Plan for steroids once labs result. Diagnostics interpreted by me include cardiac monitoring as listed below: -Cardiac Monitoring: An order was placed for continuous cardiac monitoring. The monitor shows a rate of 60-70s with regular rhythm. Patient completed laboratory studies and imaging. Results independently interpreted by me are no significant anemia or leukocytosis. Normal kidney function. Patient has hypotonic hyponatremia present. Minimal elevation in CRP. The patient was managed with IVFR. Patient is presenting with fatigue, brain fog and generalized myalgias and arthralgias over the last few days. Of note, the patient has a history of renal cell carcinoma s/p nephrectomy where she was placed on Keytruda as well as steroids over a 2 to 3-year period. Patient was recently titrated off steroids within the past few weeks. She finished her titration approximately 1 to 2 weeks ago. Patient now presents with these complaints accompanied by electrolyte derangements including hyponatremia. She also has palpable purpura on her chest and neck. I wonder if the patient's symptoms today are completely related to adrenal insufficiency in association of steroids recently. Patient was provided with stress dose steroids while in the emergency department as well as IV fluid resuscitation and pain control medications. Patient will need to be closely monitored for further workup of her electrolyte derangements and possible adrenal insufficiency. She will require medication adjustments. I do wonder if some of her symptoms are related to the initiation of gabapentin as well. Patient has not felt any relief from this medication and this could likely be discontinued. Ultimately, the decision was made to admit the patient for acute hyponatremia in the setting of likely adrenal insufficiency. I discussed the case with the hospitalist service via telephone/[employer] and they are agreeable to admit the patient to their services. Based on the above, including the patient's age, coexisting illnesses, labs, imaging, and exam findings the decision to treat as an inpatient. I discussed the patient with the hospitalist team who recommended admission to their services. They received the medications, treatments, interventions indicated above and their condition remained guarded. I discussed my findings with the patient and their family and they understand and agree with the treatment plan. All patient / family questions were answered to their satisfaction. Consults/Care Managements Discussions: Per [facility] treatment provided: See above Procedures:none Critical Care: None The chart was completed utilizing [employer] Speech voice recognition software. Grammatical errors, random word insertions, pronoun errors, and incomplete sentences are an occasional consequence of this system due to software limitations, ambient noise, and hardware issues. Any formal questions or concerns about the content, text, or information contained within the body of this dictation should be directly addressed to the physician for clarification. Past Med/Surg History Problem List (Updated 04/30/25 @ 15:45 by Kelechi Giron DO) Adrenal insufficiency (Acute) Palpable purpura (Acute) Generalized weakness (Acute) Skin lesion Weakness Hyponatremia (Acute) Osteoarthritis Osteoporosis Hypertension Clear cell renal cell carcinoma Abnormal PET scan of colon Medical History Morbid obesity with BMI of 40.0-44.9, adult History of kidney cancer Clear Cell RCC Sleep apnea No device GERD (gastroesophageal reflux disease) Pre-diabetes Taking Mounjaro Surgical History History of right radical nephrectomy History of bilateral tubal ligation History of endometrial ablation Hx of colonoscopy Colonoscopy (01/15/23): MAC at [facility] [place] teeth extracted Family History Mother Skin cancer Diabetes Hypertension Father Skin cancer Hypertension Other No family history of adverse response to anesthesia Social History Smoking Status: Never smoker Tobacco Type: Cigarettes Second Hand Exposure: No; Do You Dip or Chew Tobacco: No; Hx Alcohol Use: No Hx Substance Use: No Preferred Language: Tanzanian Communication Ability: Effective Parlor Maid Required: No Beliefs That Will Affect Care: None Current Living Situation: Spouse Feels Safe at Home: Yes Assistive Devices: None Allergies Allergies Allergy/AdvReac Type Severity Reaction Status Date / Time Sulfa (Sulfonamide Allergy Mild Rash Verified 04/27/25 19:34 Antibiotics) Home Meds Home Medications Medication Instructions Recorded Confirmed cyanocobalamin (vitamin B-12) 1,000 mcg IM Q30D 11/14/22 04/27/25 1,000 mcg/mL injection solution omeprazole 20 mg capsule,delayed 20 mg PO QAM 11/14/22 04/27/25 release aspirin 81 mg tablet,delayed 81 mg PO QAM 01/10/23 04/27/25 release calcium carbonate 600 mg PO DAILY 02/18/24 04/27/25 cholecalciferol (vitamin D3) 50 50 mcg PO DAILY 02/18/24 04/27/25 mcg (2,000 unit) tablet metoprolol succinate 50 mg 50 mg PO QAM 02/18/24 04/27/25 tablet,extended release 24 hr acetaminophen 325 mg tablet 325 mg PO QID PRN Pain 01/30/25 04/27/25 (Tylenol) lisinopril 20 mg tablet 20 mg PO QDAY 01/30/25 04/27/25 levothyroxine 50 mcg tablet 50 mcg PO DAILY 04/27/25 04/27/25 Previous Rx's Medication Instructions Recorded gabapentin 100 mg capsule 100 mg PO HS #30 caps 04/20/25 prednisone 10 mg tablet 10 mg PO DIRECTED #60 tabs 04/28/25 Results & Data (ED) Vital Signs Vital Signs - 24 hr 04/27/25 17:19 04/27/25 19:23 04/27/25 20:00 Temperature 36.6 C Temperature Source Skin Pulse Rate 64 Pulse Rate [Finger] 66 62 Pulse Rhythm [Finger] Regular Pulse Strength [Finger] Normal Respiratory Rate 20 17 13 Respiratory Effort / Characteristics Non-Labored Spontaneous Respiratory Depth Normal Respiratory Pattern Regular Blood Pressure 127/74 Blood Pressure [Left Arm] 139/70 149/83 H Blood Pressure Mean 91 Blood Pressure Mean [Left Arm] 93 105 Blood Pressure Position [Left Arm] Sitting Semi-fowlers Pulse Oximetry 96 96 97 Oxygen Delivery Method Room Air Sepsis Recent Fever Within 48 Hours No Sepsis New/Unexplained Change in Mental Status N/A Sepsis Action Taken by Nursing No Action Required Laboratory Data 04/28/25 06:46 04/28/25 06:43 Lab Results 04/27/25 Range/Units 17:40 WBC 5.80 (4.8-10.8) K/ul RBC 4.44 (4.20-5.40) M/uL Hgb 12.9 (12.0-16.0) g/dL Hct 36.9 L (37.0-47.0) % MCV 83.1 (80.0-100.0) fL MCH 29.1 (25.0-34.0) pg MCHC 35.0 (32.0-36.0) g/dL RDW Std Deviation 40.0 (36.4-46.3) fL RDW Coeff of Cristy 13.2 (11.5-14.5) % Plt Count 197 (130-400) K/uL MPV 9.5 (9.4-12.4) fL Immature Gran % (Auto) 0.7 % Neut % (Auto) 55.8 % Lymph % (Auto) 27.1 % Perkins % (Auto) 10.5 % Eos % (Auto) 5.2 % Baso % (Auto) 0.7 % Neut # (Auto) 3.24 (1.40-6.50) K/uL Lymph # (Auto) 1.57 (1.20-3.40) K/uL Perkins # (Auto) 0.61 H (0.11-0.59) K/uL Eos # (Auto) 0.30 (0.00-0.50) K/uL Baso # (Auto) 0.04 (0.00-0.20) K/uL Immature Gran # (Auto) 0.04 (0.01-0.20) K/uL ESR 8 (0-30) mm/hr Sodium 127 L (136-145) mmol/L Potassium 4.7 (3.5-5.1) mmol/L Chloride 93 L (98-107) mmol/L Carbon Dioxide 30 (21-32) mmol/L Anion Gap 4 (3-11) BUN 10 (6-23) mg/dl Creatinine 0.73 (0.6-1.2) mg/dl Est Cr Clr Drug Dosing Not Reportable eGFR 93.51 BUN/Creatinine Ratio 13.7 (10-20) Glucose 100 H (70-99(Fasting)) mg/dl Osmolality 262 L (280-300) mOsm/kg Calcium 9.3 (8.6-10.3) mg/dl Phosphorus 4.4 (2.5-4.9) mg/dl Magnesium 1.7 (1.7-2.4) mg/dl Total Bilirubin 0.7 (0.2-1.0) mg/dl AST 20 (13-39) U/L ALT 19 (7-52) U/L Alkaline Phosphatase 51 (34-104) U/L Total Creatine Kinase 51 (26-192) U/L C-Reactive Protein 1.66 H (0-0.5) mg/dl Total Protein 6.1 (6.0-8.3) gm/dl Albumin 3.8 (3.4-5.0) gm/dl Globulin 2.3 L (2.5-4.0) gm/dl Albumin/Globulin Ratio 1.7 (0.9-2) Administered Medications Discontinued Medications Acetaminophen (Acetaminophen 325 Mg Tab) 325 mg PO QID PRN PRN Reason: Pain Stop: 05/27/25 22:02 Last Admin: 04/28/25 19:38 Dose: 325 mg Documented By: Admin: 04/28/25 08:57 Dose: 325 mg Documented By: marcie Aspirin (Aspirin 81 Mg Ectab) 81 mg PO [facility] Stop: 05/28/25 08:59 Last Admin: 04/28/25 08:20 Dose: 81 mg Documented By: marcie Hydrocortisone Sodium Succinate (Hydrocortisone Sod Succinate 100 Mg/2 Ml Vial) 50 mg IV NOW STA Stop: 04/27/25 19:07 Last Admin: 04/27/25 19:26 Dose: 50 mg Documented By: MAXIMILIAN Hydrocortisone Sodium Succinate (Hydrocortisone Sod Succinate 100 Mg/2 Ml Vial) 50 mg IV NOW STA Stop: 04/27/25 20:35 Last Admin: 04/27/25 20:55 Dose: 50 mg Documented By: MICKEY Parenteral Electrolytes (Plasma-Lyte A Ph 7.4) 1,000 mls @ 999 mls/hr IV .Q1H1M ONE Stop: 04/27/25 19:17 Last Infusion: 04/27/25 20:05 Dose: Infused Documented By: Admin: 04/27/25 18:49 Dose: 999 mls/hr Documented By: bruna Daptomycin 600 mg/ Syringe 12 mls @ 6 mls/min IV Q24H ELISABETH; Protocol Stop: 04/29/25 21:29 Last Admin: 04/27/25 22:54 Dose: 6 mls/min Documented By: MILEY Lactated Ringer's (Lr) 1,000 mls @ 100 mls/hr IV .Q10H ELISABETH Stop: 04/28/25 08:02 Last Infusion: 04/28/25 08:18 Dose: Infused Documented By: marcie Admin: 04/27/25 22:14 Dose: 100 mls/hr Documented By: KIARA Hydrocortisone Sodium (Succinate 50 mg/ Syringe) 1 mls @ 4 mls/min IV Q8H ELISABETH Stop: 05/28/25 04:59 Last Admin: 04/28/25 13:09 Dose: 4 mls/min Documented By: marcie Admin: 04/28/25 05:33 Dose: 4 mls/min Documented By: KIARA Ketorolac Tromethamine (Ketorolac Tromethamine 15 Mg/Ml Vial) 15 mg IV NOW STA Stop: 04/27/25 18:43 Last Admin: 04/27/25 19:07 Dose: 15 mg Documented By: bruna Levothyroxine Sodium (Levothyroxine Sodium 50 Mcg Tablet) 50 mcg PO DAILYBB [facility] Stop: 05/28/25 06:29 Last Admin: 04/28/25 05:33 Dose: 50 mcg Documented By: KIARA Lisinopril (Lisinopril 20 Mg Tab) 20 mg PO DAILY ELISABETH Stop: 05/28/25 08:59 Last Admin: 04/28/25 08:57 Dose: 20 mg Documented By: marcie Metoprolol Succinate (Metoprolol Succ 50mg Ext Rel Tab) 50 mg PO QAM [facility] Stop: 05/28/25 08:59 Last Admin: 04/28/25 08:20 Dose: 50 mg Documented By: marcie Metoprolol Tartrate (Metoprolol Tartrate 1 Mg/Ml Vial) 2.5 mg IV NOW STA Stop: 04/28/25 16:55 Last Admin: 04/28/25 17:12 Dose: 2.5 mg Documented By: marcie Pantoprazole Sodium (Pantoprazole 40 Mg Tab) [facility] Stop: 05/28/25 08:59 Last Admin: 04/28/25 08:21 Dose: 40 mg Documented By: muscogee Discharge Plan Visit Data Chief Complaint: Illness Stated Complaint: CONFUSION FATIQUE WITHDRAW FROM MEDS ED Provider: Kelechi Giron Discharge Problem: Hyponatremia, Generalized weakness, Palpable purpura, Adrenal insufficiency Patient Disposition: Admitted As Inpatient Condition: Fair Discharge Instructions Interventions: ED Discharge Assessment Last Done: 04/27/25 21:39
[2025-04-27] MEDS: HYDROCORTISONE SOD SUCCINATE 100 MG/2 ML VIAL IV STA ×2 (19:26→20:55)
--- NOTE | 2025-04-27 19:39 | History & Physical Report ---
Date of Service April 27, 2025 Assessment & Plan (1) Weakness: (2) Hyponatremia: (3) Skin lesion: Plan 59-year-old female PMHx clear-cell renal carcinoma, HTN, OP, OA, hypothyroidism, and GERD presenting for weakness. Overall labs are unremarkable with exception of sodium 127, CRP 1.66, and serum osmolality of 262. Admission for concerns of adrenal insufficiency, hyponatremia, and skin lesion. #Weakness/Hyponatremia/? Adrenal insufficiency Presenting for decrease in daily functioning starting after tapered off Prednisone, which she had previously been on x 2 years. Taper was 10 weeks, initiated on gabapentin for OA symptoms per rheumatology. Pt with increased weakness, brain fog, decreased intake. Suspect multifactorial - hyponatremia + adrenal insufficiency. Also with new skin lesions on chest/back since d/c Prednisone, unclear etiology. Will cover empirically for MRSA. Received IVF in ED (1L plasmalyte) and hydrocortisone 50mg IV in ED. Admission for further management weakness in setting of hyponatremia and suspected component of adrenal insufficiency - CBC WNL; CMP Na 127, Cl 93, glucose 100; serum osmol 262 - BMP am - UA pending - CTAP + CT chest pending - IVF LR @ 100 mL/hr - Hydrocortisone 50mg IV additionally added -- total Hydrocortisone 100mg IV - Consider PT/OT consult pending symptoms following above treatment - Rheumatology initially consulted - encouraged involvement of endocrinology rather than rheumatology; rheum initially consulted as they have managed the patient's steroids -- consider endo consult as appropriate/needed #Skin lesion Skin lesion to upper back and chest following completion of steroid taper, new medications include gabapentin only. Without pain, itching, or additional symptoms. ?? hypersensitivity vs ?? vasculitis. Was to follow with dermatology 04/28/2025 for evaluation. Reports using a cream on the area as recommended by PCP, unsure what it was. Regardless, she will receive steroids for above, will monitor to see if this improves the skin lesions. - Dapto IV empirically given for ? MRSA - Dermatology does not offer inpatient or ED consults, ? punch biopsy needed - was informed to call dermatology provider for recommendations on further steps as appropriate #Renal cell carcinoma s/p R nephrectomy- Dx 2022, R nephrectomy. Was initially on Keytruda, unable to tolerate 2/2 joint symptoms so was placed on Prednisone nursing home. CTAP 12/2024 w/ L lower pole hyperdense lesion; pending CTAP #OA- Acetaminophen, gabapentin - Hold gabapentin, ? contributing to brain fog #Hypothyroidism- TSH 06/2024 @ 2.466; Levothyroxine - Pending TSH, continue #HTN- Lisinopril, metoprolol - continue metoprolol, hold lisinopril x 1 pending repeat BMP #GERD- Omeprazole - continue Pt's daughter, Itzel, is first call for medical emergencies @ [phone] Dispo: Admit, med/tele VTE Prophylaxis: SCDs This document was dictated utilizing [employer]. Please excuse any grammatical errors that may be secondary to use of this software. Admission and Anticipated Discharge Date Admission Date: 04/27/2025 History of Present Illness Chief Complaint: Weakness Primary Care Provider: Jannet Portillo 59-year-old female PMHx clear-cell renal carcinoma, HTN, OP, OA, hypothyroidism, and GERD presenting for weakness. 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 Her daughter reports that her mother was more confused and unable to recall basic information when asked, which the patient agrees to and calls "brain fog." She also has been having worsening joint pain since being off steroids, reporting that Tylenol-Arthritis is not helping. Joint pain is all over, not localized. She reports fatigue and weakness, having difficulties doing basic tasks. 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 She was encouraged to increase her intake which the patient did try to do. She is still having difficulties with her overall intake, not drinking enough through the day. She was seen by PCP again the day of arrival and her Na had only increased from 127 to 128. She feels that she has been flush and having chills. Admits to nausea, decreased urine output, and new skin rash that started on her back after prednisone taper was complete, and has since spread to her chest. It is not painful or pruritic. No drainage from areas. Denies chest pain, SOB, palpitations, abdominal pain, V/D/C, URI symptoms, LUTS, numbness/tingling, syncope, or falls. ED evaluation reveals CBC without leukocytosis or leukopenia, stable H&H; CMP sodium 127, chloride 93, glucose 100; CK 51; CRP 1.66; ESR 8; serum osmolality 262; EKG NSR with sinus arrhythmia, LAD and low voltage QRS at 65 bpm.; Provided with 1L Plasma-Lyte, ketorolac 15 mg IV, and hydrocortisone 50 mg IV in the ED. Please see Dr. Conway's attestation for adjustments/additions to treatment plan. Allergies Allergy/AdvReac Type Severity Reaction Status Date / Time Sulfa (Sulfonamide Allergy Mild Rash Verified 04/27/25 19:34 Antibiotics) Home Medications Medication Instructions Recorded Confirmed Type cyanocobalamin (vitamin B-12) 1,000 mcg IM Q30D 11/14/22 04/27/25 History 1,000 mcg/mL injection solution omeprazole 20 mg capsule,delayed 20 mg PO QAM 11/14/22 04/27/25 History release aspirin 81 mg tablet,delayed 81 mg PO QAM 01/10/23 04/27/25 History release calcium carbonate 600 mg PO DAILY 02/18/24 04/27/25 History cholecalciferol (vitamin D3) 50 50 mcg PO DAILY 02/18/24 04/27/25 History mcg (2,000 unit) tablet metoprolol succinate 50 mg 50 mg PO QAM 02/18/24 04/27/25 History tablet,extended release 24 hr acetaminophen 325 mg tablet 325 mg PO QID PRN Pain 01/30/25 04/27/25 History (Tylenol) lisinopril 20 mg tablet 20 mg PO QDAY 01/30/25 04/27/25 History gabapentin 100 mg capsule 100 mg PO HS #30 caps 04/20/25 04/27/25 Rx levothyroxine 50 mcg tablet 50 mcg PO DAILY 04/27/25 04/27/25 History Past Med/Surg History Problem List (Updated 04/27/25 @ 21:33 by Curry Liz PA-C) Skin lesion Weakness Hyponatremia Osteoarthritis Osteoporosis Hypertension Clear cell renal cell carcinoma Abnormal PET scan of colon Medical History Morbid obesity with BMI of 40.0-44.9, adult History of kidney cancer Clear Cell RCC Sleep apnea No device GERD (gastroesophageal reflux disease) Pre-diabetes Taking Mounjaro Surgical History History of right radical nephrectomy History of bilateral tubal ligation History of endometrial ablation Hx of colonoscopy Colonoscopy (01/15/23): MAC at [facility] [place] teeth extracted Family History Mother Skin cancer Diabetes Hypertension Father Skin cancer Hypertension Other No family history of adverse response to anesthesia Social History Smoking Status: Never smoker Tobacco Type: Cigarettes Second Hand Exposure: No; Do You Dip or Chew Tobacco: No; Hx Alcohol Use: No Hx Substance Use: No Preferred Language: Slovak Communication Ability: Effective Emergency Room Clerk Required: No Beliefs That Will Affect Care: None Current Living Situation: Spouse Feels Safe at Home: Yes Assistive Devices: None Review of Systems 2 Review of Systems: All systems reviewed & are unremarkable except as noted in Subjective Physical Exam 2 Physical Exam: General: No acute distress Skin: Warm and dry; Rash back and chest, purple/erythema, slightly raised, no drainage (see image) Head: Normocephalic, atraumatic Eyes: PERRL, conjunctivae clear, sclera non-icteric ENT: External ear and ear canal without swelling; nose atraumatic; good dentition, tongue normal appearance, pharynx normal Neck: Supple, no LAD Cardio: RRR, no M/G/R, S1 and S2 normal Resp: Breathing very noticeable; No respiratory distress, Lungs CTA in all lobes bilaterally, no wheezes, rales, or rhonchi Abdomen: Soft, symmetric, nontender; No masses or hepatosplenomegaly; Bowel sounds normoactive MSK: No deformities; pulses palpable and equal; no edema. Neuro: Awake, alert; Sensation intact bilaterally; CN grossly intact Psych: Appropriate mood and affect; good judgement and insight. present in room at time of visit. Daughter involved via phone call during visit. Results & Data Results & Data Vital Signs (Past 12 Hours) Vital Signs Temp Pulse Pulse Resp BP BP Pulse Ox 04/27/25 19:23 66 17 139/70 96 04/27/25 17:19 36.6 C 64 20 127/74 96 O2 Del Method 04/27/25 19:23 Room Air 04/27/25 17:19 Laboratory Results 04/27/25 17:40 WBC 5.80 RBC 4.44 Hgb 12.9 Hct 36.9 L MCV 83.1 MCH 29.1 MCHC 35.0 RDW Std Deviation 40.0 RDW Coeff of Cristy 13.2 Plt Count 197 MPV 9.5 Immature Gran % (Auto) 0.7 Neut % (Auto) 55.8 Lymph % (Auto) 27.1 [place] % (Auto) 10.5 Eos % (Auto) 5.2 Baso % (Auto) 0.7 Neut # (Auto) 3.24 Lymph # (Auto) 1.57 [place] # (Auto) 0.61 H Eos # (Auto) 0.30 Baso # (Auto) 0.04 Immature Gran # (Auto) 0.04 ESR 8 Sodium 127 L Potassium 4.7 Chloride 93 L Carbon Dioxide 30 Anion Gap 4 BUN 10 Creatinine 0.73 Est Cr Clr Drug Dosing Not Reportable eGFR 93.51 BUN/Creatinine Ratio 13.7 Glucose 100 H Osmolality 262 L Calcium 9.3 Phosphorus 4.4 Magnesium 1.7 Total Bilirubin 0.7 AST 20 ALT 19 Alkaline Phosphatase 51 Total Creatine Kinase 51 C-Reactive Protein 1.66 H Total Protein 6.1 Albumin 3.8 Globulin 2.3 L Albumin/Globulin Ratio 1.7 Medications Administered 1L Plasma-Lyte Ketorolac 15 mg IV Hydrocortisone 50 mg IV ECG Additional Comments: NSR with sinus arrhythmia, LAD, low voltage QRS 65 bpm, VT 168, QRS 80, QT/QTc 418/434, PRT 28/-36/35 Code Status & VTE Plan Code Status Full Supervising Physician Co-Signing Physician Notes Attending addendum: I have physically seen this patient, have supervised the VLAD's activities, and agree with the H&P unless as otherwise noted. Assessment and Plan: The patient is a 59-year-old female with a past medical history including clear- cell renal carcinoma, hypertension, PE, AMI, hypothyroidism, and GERD. She presents to the emergency department with progressive generalized weakness. She had been on a course of prednisone for 3 years, and they have gradually tapering her the past 10 weeks. She is now off of prednisone at this time. She was then started on gabapentin, for OA symptoms per rheumatology. Since the stopping of prednisone starting on gabapentin, she has had increased weakness, brain fog, decreased oral intake, lethargy and decreased interest in exercising. She significant laboratories: Sodium 127, magnesium 1.7, serum osmolality 262, urine osmolality pending. From the ED patient received the following: Hydrocortisone 50 mg IV, Toradol 15 mg IV, Plasma-Lyte 1 L bolus. [facility] is then [facility] Progressive weakness- Potential contributing factors including not limited to: Hyponatremia, adrenal sufficiency, urine tract infection, dehydration, medication adverse effects ,others Adrenal insufficiency/hyponatremia- Sodium 127, chloride 93, glucose 100, serum osmolality 262, urine osmolality pending. Patient looks clinically quite dry. Status post 1 L Plasma-Lyte from the ED Place on LR at 100 mL/h. Patient is already being given hydrocortisone 50 mg IV, so random cortisol level cannot be obtained Give and additional 50 mg IV now, for total of 100 mg IV loading dose. Continue hydrocortisone 50 mg IV every 8 hours Follow serial BMP and magnesium levels Skin lesions- Patient reports multiple skin lesions on chest and back. After she stopped the steroid taper and after she has started gabapentin. Unclear etiology at this time, for now treat empirically for MRSA with Dapto IV Will be useful to get a punch biopsy, daytime can contact to see if anyone will come up and do a biopsy, or possibly the residents Not typical or suggestive of a tickborne illness. Renal cell carcinoma status post right nephrectomy- Was on Keytruda for a brief interval time, but unable to tolerate due to joint symptoms, which led to prednisone long-term. CT of abdomen and pelvis 01/02 with lower pole hyperdense lesion. Repeating CT abdomen pelvis today Hypertension- Continue metoprolol. Hold lisinopril AMI- Continue acetaminophen Hold gabapentin Hypothyroidism- Continue levothyroxine GERD- Continue omeprazole/pantoprazole PG Care Time/CCT Total # of Minutes Spent Total Time Spent with Patient: Total time spent is greater than 50% in coordination of care (as documented) at patient's floor/unit and/or counseling patient: Coding Level of Care Code 72944 INT INP/OBS CARE 3/75MIN Diagnoses Weakness R53.1 Hyponatremia E87.1 Skin lesion L98.9
--- NOTE | 2025-04-27 21:39 | CT Scan Report ---
Exam(s): CT CHEST Without Contrast EXAM: CT Chest Without Intravenous Contrast CLINICAL HISTORY: RCC CA, smoker. TECHNIQUE: Axial computed tomography images of the chest without intravenous contrast. CTDI is 34 mGy and DLP is 2160 mGy-cm. Automated exposure control was utilized for the study. A dose lowering technique was utilized adhering to the principles of ALARA. COMPARISON: 01-05-2025 FINDINGS: Lungs: Unchanged few scattered noncalcified subcentimeter nodular densities, largest in the right middle lobe 3 mm in diameter. No new pulmonary nodule or suspicious lesion is identified. Minimal dependent atelectasis. No consolidation. Pleural space: No pneumothorax. No pleural effusion. Heart: No cardiomegaly. No significant pericardial effusion. Minimal coronary artery calcifications. Bones/joints: Degenerative changes of the spine. No acute fracture. Soft tissues: Unremarkable. Vasculature: No thoracic aortic aneurysm. Lymph nodes: Unremarkable. No enlarged lymph nodes. Abdomen: Mildly hypodense/fatty liver. IMPRESSION: No significant change. Unchanged few scattered noncalcified subcentimeter nodular densities, largest in the right middle lobe 3 mm in diameter. No new pulmonary nodule or suspicious lesion is identified. Electronically signed by: Seamus Santiago M.D. 04/27/25 21:38 PM
--- NOTE | 2025-04-27 21:57 | CT Scan Report ---
Exam(s): CT ABDOMEN + PELVIS Without Contrast EXAM: CT Abdomen and Pelvis Without Intravenous Contrast CLINICAL HISTORY: RCC CA, L renal lesion. TECHNIQUE: Axial computed tomography images of the abdomen and pelvis without intravenous contrast. CTDI is 34 mGy and DLP is 2164 mGy-cm. Automated exposure control was utilized for the study. A dose lowering technique was utilized adhering to the principles of ALARA. COMPARISON: 01/05/2025 FINDINGS: Lung bases: Right lower lobe noncalcified lung nodule 4.2 x 4.7 mm. No consolidation. ABDOMEN: Liver: Mildly hypodense/fatty. Gallbladder and bile ducts: Unremarkable. No calcified stones. No ductal dilation. Pancreas: Unremarkable. No ductal dilation. Spleen: Unremarkable. No splenomegaly. Adrenals: Unremarkable. No mass. Kidneys and ureters: Status post right nephrectomy with a surgical clip present. No abnormal mass or collection within the right renal fossa. Unchanged exophytic hyperdense cyst versus mass lower pole left kidney 12 x 10 mm. Left kidney otherwise unremarkable without hydronephrosis or calculus. No hydroureter. Stomach and bowel: No obstruction or ileus. Scattered colonic diverticuli greatest in the sigmoid colon, without evidence for diverticulitis. PELVIS: Appendix: No findings to suggest acute appendicitis. Bladder: Contracted. No stones. Reproductive: Uterus and ovaries are grossly unremarkable. ABDOMEN and PELVIS: Intraperitoneal space: No free air. No free fluid. Bones/joints: No acute fracture. Unchanged prominent Schmorl's node and slight compression deformity of the superior endplate of L3. Chronic mild compression deformity of T12. Degenerative changes of the spine. No lytic or blastic lesion identified. Soft tissues: Unremarkable. Vasculature: Atherosclerotic vascular calcifications. No abdominal aortic aneurysm. Lymph nodes: Unremarkable. No enlarged lymph nodes. IMPRESSION: Right lower lobe noncalcified lung nodule, increased from 01/05/2025. Status post left nephrectomy. No suspicious intra-abdominal or pelvic abnormality to indicate metastatic disease. Examination limited by lack of intravenous contrast material. Otherwise no significant interval change. Electronically signed by: Seamus Santiago M.D. 04/27/25 21:56 PM
[2025-04-27] MEDS ORDERED: POLYETHYLENE (MIRALAX) 17 GM PACK PO PRN (22:03)
[2025-04-27] MEDS ORDERED: ONDANSETRON INJ 2 MG/ML 2 ML VIAL IV PRN (22:03)
[2025-04-27] MEDS: LACTATED RINGER'S 1,000 ML IV SCH (22:14)
[2025-04-27] MEDS: DAPTOmycin 600 MG in SYRINGE 0 ML IV SCH (22:54)
[2025-04-28 02:14] LABS: Appearance Urine Clear (Clear); Glucose Urine UA Negative (Negative)
[2025-04-28] MEDS: HYDROCORTISONE SOD 50 MG in SYRINGE 0 ML IV SCH (05:33)
[2025-04-28] MEDS: LEVOTHYROXINE SODIUM 50 MCG TABLET PO SCH (05:33)
[2025-04-28 07:25] LABS: Hematocrit (blood only) 36.8 % (37.0-47.0); Hemoglobin 13.5 g/dL (12.0-16.0); Mean Corpuscular Hemoglobin 30.3 pg (25.0-34.0); Mean Corpuscular Volume 82.7 fL (80.0-100.0); Platelet Count 206 K/uL (130-400); RDW Standard Deviation 39.6 fL (36.4-46.3); Red Blood Count 4.45 M/uL (4.20-5.40); White Blood Count 4.57 K/ul (4.8-10.8)
[2025-04-28 07:29] LABS: Anion Gap 7.0 (3-11); Blood Urea Nitrogen 9.0 mg/dl (6-23); Calcium 9.5 mg/dl (8.6-10.3); Carbon Dioxide 27.0 mmol/L (21-32); Chloride 102.0 mmol/L (98-107); Creatinine Clr Calc Pharmacy 101.7 ml/min; Glucose 118.0 mg/dl (70-99(Fasting)); Potassium 4.8 mmol/L (3.5-5.1); Sodium 136.0 mmol/L (136-145)
[2025-04-28 07:38] LABS: Thyroid Stimulating Hormone 1.59 uIu/ml (0.300-4.500)
[2025-04-28] MEDS: ASPIRIN 81 MG ECTAB PO SCH (08:20)
[2025-04-28] MEDS: METOPROLOL SUCC 50MG EXT REL TAB PO SCH (08:20)
[2025-04-28] MEDS: ACETAMINOPHEN 325 MG TAB PO PRN (08:57)
[2025-04-28 15:54] VITALS: RESP 20; TEMP 97.5; O2SAT 93
[2025-04-28] MEDS: METOPROLOL TARTRATE 1 MG/ML VIAL IV STA (17:12)
--- NOTE | 2025-04-28 18:33 | Discharge Summary ---
Date of Service April 28, 2025 Admission HPI Per Admitting Provider 59-year-old female PMHx clear-cell renal carcinoma, HTN, OP, OA, hypothyroidism, and GERD presenting for weakness. 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 Her daughter reports that her mother was more confused and unable to recall basic information when asked, which the patient agrees to and calls "brain fog." She also has been having worsening joint pain since being off steroids, reporting that Tylenol-Arthritis is not helping. Joint pain is all over, not localized. She reports fatigue and weakness, having difficulties doing basic tasks. 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 She was encouraged to increase her intake which the patient did try to do. She is still having difficulties with her overall intake, not drinking enough through the day. She was seen by PCP again the day of arrival and her Na had only increased from 127 to 128. She feels that she has been flush and having chills. Admits to nausea, decreased urine output, and new skin rash that started on her back after prednisone taper was complete, and has since spread to her chest. It is not painful or pruritic. No drainage from areas. Denies chest pain, SOB, palpitations, abdominal pain, V/D/C, URI symptoms, LUTS, numbness/tingling, syncope, or falls. ED evaluation reveals CBC without leukocytosis or leukopenia, stable H&H; CMP sodium 127, chloride 93, glucose 100; CK 51; CRP 1.66; ESR 8; serum osmolality 262; EKG NSR with sinus ar rhythmia, LAD and low voltage QRS at 65 bpm.; Provided with 1L Plasma-Lyte, ketorolac 15 mg IV, and hydrocortisone 50 mg IV in the ED. Please see Dr. Conway's attestation for adjustments/additions to treatment plan. Admission Exam Per Admitting Provider General: No acute distress Skin: Warm and dry; Rash back and chest, purple/erythema, slightly raised, no drainage (see image) Head: Normocephalic, atraumatic Eyes: PERRL, conjunctivae clear, sclera non-icteric ENT: External ear and ear canal without swelling; nose atraumatic; good dentition, tongue normal appearance, pharynx normal Neck: Supple, no LAD Cardio: RRR, no M/G/R, S1 and S2 normal Resp: Breathing very noticeable; No respiratory distress, Lungs CTA in all lobes bilaterally, no wheezes, rales, or rhonchi Abdomen: Soft, symmetric, nontender; No masses or hepatosplenomegaly; Bowel sounds normoactive MSK: No deformities; pulses palpable and equal; no edema. Neuro: Awake, alert; Sensation intact bilaterally; CN grossly intact Psych: Appropriate mood and affect; good judgement and insight. Principal Diagnosis weakness hyponatremia adrenal insufficiency Discharge Exam General: No acute distress Skin: Warm and dry; reddish-purple erythematous, blanching rash along chest, back, and left side of neck. Head: Normocephalic, atraumatic Cardio: RRR, no M/G/R, S1 and S2 normal Resp: Lungs CTA in all lobes bilaterally, no wheezes, rales, or rhonchi Abdomen: Soft, symmetric, nontender, nondistended MSK: normal to expectations, no edema. Neuro: Awake, alert; no focal neurological deficits. Psych: Appropriate mood and affect Discharge Data Allergies Allergy/AdvReac Type Severity Reaction Status Date / Time Sulfa (Sulfonamide Allergy Mild Rash Verified 04/27/25 19:34 Antibiotics) Consultations 04/27/25 20:00 ED Decision to Admit Stat Ordered Studies 04/27/25 20:33 CT Abd and Pelvis [CT abd pelvis wo con] Urgent CT chest without contrast [CT chest diagnostic wo con] Urgent Hospital Course (1) Weakness: (2) Hyponatremia: (3) Clear cell renal cell carcinoma: (4) Skin lesion: Plan 59-year-old female PMHx clear-cell renal carcinoma, HTN, OP, OA, hypothyroidism, and GERD presenting for weakness. Overall labs are unremarkable with exception of sodium 127, CRP 1.66, and serum osmolality of 262. Admission for concerns of adrenal insufficiency, hyponatremia, and skin lesion. #Weakness/Hyponatremia/? Adrenal insufficiency/PMR Presenting for decrease in daily functioning starting after tapered off Prednisone, which she had previously been on x 2 years. Taper was 10 weeks, initiated on gabapentin for OA symptoms per rheumatology. Pt with increased weakness, brain fog, decreased intake. Suspect multifactorial - hyponatremia + adrenal insufficiency. Also with new skin lesions on chest/back since d/c Prednisone, unclear etiology. Will cover empirically for MRSA. Received IVF in ED (1L plasmalyte) and hydrocortisone 50mg IV in ED. Admission for further management weakness in setting of hyponatremia and suspected component of adrenal insufficiency. CBC WNL; CMP Na 127, Cl 93, glucose 100; serum osmol 262 - labs this AM, electrolytes wnl. Hyponatremia resolved, now 136 - UA negative for infection. Urine Osm 69 - CT ab/pelvis with R lower lobe noncalcified lung nodules, slightly increased in size from CT ab/pelvis 12/16/24 ; unchanged exophytic hyperdense cyst of the left lower pole of the left kidney. - IVF LR @ 100 mL/hr - Hydrocortisone 50mg IV additionally added -- total Hydrocortisone 100mg IV - will d/c patient on prednisone 20mg will anticipation of tapering pending f/u with rheumatology and PCP. #Skin lesion - likely autoimmune/vasculitis in the setting of discontinuing steroid. Steroid likely masking autoimmune process causing this rash. Not bothersome, as it does not itch, bleed or is painful. Was supposed to be evaluated by dermatology today (04/28/25) however was unable to be seen due to this admission. - likely resumption of prednisone as above will help with resolution of this rash. There is no concern for infection at this time as WBC is wnl, patient is afebrile, and rash not in typical appearance of cellulitis. Will d/c daptomycin which was started for MRSA coverage. Will not need abx on discharge. #Renal cell carcinoma s/p R nephrectomy- Dx 2022, R nephrectomy. 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 CTAP 12/2024 w/ L lower pole hyperdense lesion; pending CTAP - continue routine follow-up with Dr. King and nephrology. #OA - Acetaminophen prn for arthritis pain - continue holding gabapentin #Hypothyroidism - TSH 06/2024 @ 2.466; - repeat TSH 1.590 - continue home levothyroxine #HTN - resume Lisinopril, metoprolol ; lisinopril was held for 1 dose pending this morning's AM BMP - electrolytes and kidney function stable, therefore lisinopril was resumed - pressures continued to slowly increase during admission, highest was 207/80. Given Lopressor 2.5mg IV, repeat BP 176/94. #GERD- Omeprazole - continue Total Time Total Time Spent Total Time Spent (In Minutes): ~60 Discharge Plan Discharge Items Patient Disposition: Home - Self-Care Reason For Visit: HYPONATREMIA, ? AI Discharge Diagnosis: see below Activity: Resume your previous activity Non-emergency contact: Primary Care Provider Call non-emergency contact if: you have any medication questions and your symptoms worsen Follow-up/Referrals: Jannet Portillo C.R.[email or web address] [Primary Care Provider] - Diet: Regular Addtl Attending Provider Instructions: weakness - there are 3 main possiblities of what's causing the weakness. all really are different reasons why going back to moderate dosing of prednisone and slowly weaning down makes the most sense, but any/all of the 3 possiblities could be at play here: a) steroid dependence - while it's not very likely that you would have permanent steroid dependence from being on the prednisone dosing you were on for the last few years, it's certainly possible that the wean you were on, even though it was slow, might have been faster than your body could tolerate --when we are on steroids for a while, our adrenal glands (which make our own cortisol) can "get lazy" and take a while to wake up - in that respect sometimes our adrenals will wake up over time, but it can sometimes take a really long time (in this respect, the example we talked about was my , who was on prednisone for her lupus for years, and i was on as little as 1mg for months and months before stopping - and even then had a very mild but similar symptom complex to what you felt) b) polymyalgia rheumatica -it's not "textbook" PMR (polymyalgia rheumatica) but the stiffness in your shoulders and hips, fatigue, and the fact that you feel better on steroids does fit fairly well with a "sort of rheumatologic" diagnosis called PMR. i call it "sort of rheumatologic" because it behaves like it's inflammatory, responds to steroids, but we don't have a great explanation of the mechanism of what happens like we do with other "more classic" rheumatologic diagnoses like rheumatoid arthritis or lupus -typically PMR responds really nicely to prednisone, and most people with PMR do well on really low doses (as we discussed, often as little as 5mg) but usually feel worse and get stiffer right away when they stop it. the fact that you felt good on as little as 3mg and then worse off it also supports that we may have something in this "family" of diagnoses going on c) late effects of keytruda -it would be a little odd since you've been off it so long, but it's hard to ignore the "cause and effect" timeline that a lot of these symptoms did first start while you were still on the keytruda. what makes meds like this so helpful with cancer is that it "unchains" our immune system and allows it to assault the cancer, but the downside is that in "unchaining" our immune system sometimes we'll have our immune system also assault normal tissue ----regardless if it's one, or all, of the 3 above, the main strategy would be to quiet the symptoms with prednisone, and then reduce to the lowest dose possible while keeping your symptoms in check. with that in mind, this will be a little "open ended" - we'll send you home on 20mg of prednisone daily, with the intent that your PCP will drop the dose a little every week or two at first, and then more slowly later, with the goal of basically "pinpointing" the dose at which you feel good, and no more than that. because it's not clear you'll need the steroids forever, from there it would be once every several months trialing a slight reduction in the dose to see if it causes problems (and if it does, then just going right back to the last dose that was effective) ----as a loose example (not a prescribed roadmap - because really your body will tell us based on how you're feeling) - it could be something like being on 20mg for 2 weeks, then 15mg for 2 weeks, then 10mg for a month or two, then 9mg for a month and so on and so on. if you're doing well on really low dosing (say 5mg or less) then maybe once every 2-3 months we'd want you to try dropping by 1mg and seeing if it makes a difference - this would be to distinguish if you'll need the steroids at really low dosing forever or not. --it's not rare to see someone need really low dosing of prednisone indefinitely - as we discussed, what we're looking at when we're making medical decisions is really never "what's the right choice" as much as "what's the best bad choice" - and in this respect the weakness, malaise, stiffness and nausea you've been feeling are much more imminently harmful and much more prone to causing a steep decline than the risks of thin bones, weight gain, and sugar elevations that can come with steroids. -i would definitely follow through with rheumatology's recommendations on the treatment of your osteoporosis (thin bones) - as we discussed, no one feels osteoporosis until they break things, but then that's "playing from behind" and really lousy/a lot to recover from! -given that you'll likely settle onto really low doses of prednisone, the sugar and weight gain problems can likely be balanced out by eating healthy (minim izing bready/starchy/sugary carbs) and exercising regularly (as we discussed, right now it would be out of reach, but working daily to improve your weakness and eventually building to a goal of 30 minutes of light cardiovascular exercise a day) the rashes: as we discussed, i'm definitely no expert on this kind of situation, but the way the rash looks, and the way it came up as the steroid dosing was being reduced, makes me suspicious that it is a vasculitis - basically an immune system mediated inflamation of superficial blood vessels. these will often respond to steroids, so if it fades with higher dosing of prednisone, that would fit as well. if it doesn't, or if it comes back, then it may still be necessary to see dermatology and/or have someone take a biopsy of the rash to see what's truly going on under a microscope follow up with your PCP regularly on this - probably for the near future, expect to need to be seen ~1-2 times a month as things are being followed and adjusted! Pending Studies at Discharge: No Stand-Alone Forms: My [facility], Smoking Cessation Medications and DC Order Prescriptions: New prednisone 10 mg tablet 10 mg PO DIRECTED Qty: 60 0RF Rx Instructions: 20mg (2 tabs) daily until directed otherwise Continued gabapentin 100 mg capsule 100 mg PO HS Qty: 30 2RF cyanocobalamin (vitamin B-12) 1,000 mcg/mL solution 1,000 mcg IM Q30D omeprazole 20 mg capsule,delayed release(DR/EC) 20 mg PO QAM metoprolol succinate 50 mg tablet extended release 24 hr 50 mg PO QAM calcium carbonate 600 mg calcium (1,500 mg) tablet 600 mg PO DAILY cholecalciferol (vitamin D3) 50 mcg (2,000 unit) tablet 50 mcg PO DAILY acetaminophen [Tylenol] 325 mg tablet 325 mg PO QID PRN (Reason: Pain) lisinopril 20 mg tablet 20 mg PO QDAY aspirin 81 mg Tablet,Delayed Release (Dr/Ec) 81 mg PO QAM levothyroxine 50 mcg tablet 50 mcg PO DAILY Discharge Orders: Discharge Order (Routine); Ordered 04/28/25 Ordered By: Сергей Jaimes Admission Data Admit Date/Time: 04/27/25 20:31 Attending Provider: Сергей Jaimes Admit Provider: Sam Conway Primary Care Provider: Jannet Portillo Other Providers: Sam Conway Supervising Physician Co-Signing Physician Notes I personally examined the patient and verified all freeman points of history and exam, discussed case, and agree with decision making with Dr King Visited twice and personally prepared discharge instructions. Feeling better enough that she feels up to going home. Extensive discussions on differentials and treatment plan. Vitals noted, in general she is awake and alert pleasant no distress. HEENT normocephalic atraumatic mucous membranes moist. Diffuse circular violaceous rash that is blanchable on her upper chest and left cheek. Neuro without focal deficits. Weakness/fatigue/myalgias/hyponatremia/nausea/poor p.o. intakesee discharge instructions, but in short the differential can be any or all of adrenal insufficiency due to chronic steroid use followed by tapering off, polymyalgia rheumatica, possibly late effects of Keytruda requiring ongoing immune suppressionall of the above would respond to steroids, and she does appear to be responding to steroids. She would very much like to go home. Would utilize prednisone 20 mg for now, with an anticipated long slow taper. Discussed that is not clear if she will need to be on steroids forever or if she could potentially be weaned off over timea lot of this will depend on which of the above noted differentials remain as her story unfoldsbut the overall strategy would be to very slowly wean her to the lowest effective dose and hold at that dose for quite a while, and then potentially try to slowly wean from there, but only if she tolerates without noticeable symptoms. Hyponatremia was either due to adrenal insufficiency, poor p.o. intake or botheither way it has improved, p.o. intake has improvedwould recommend basic metabolic panel as an outpatient next week. otherwise as above
--- NOTE | 2025-04-28 19:11 | Billing Data ---
Date of Service April 28, 2025 Coding Level of Care Code 48804 INP/OBS DISCH >30 MIN
[2025-04-28 19:15] VITALS: BP 161/84
[2025-04-28 19:50] VITALS: PULSE 75
--- NOTE | 2025-04-28 21:59 | Electrocardiogram Report ---
Test Reason : Blood Pressure : */* mmHG Vent. Rate : 65 BPM Atrial Rate : 65 BPM P-R Int : 168 ms QRS Dur : 80 ms QT Int : 418 ms P-R-T Axes : 28 -36 35 degrees QTcB Int : 434 ms Normal sinus rhythm with sinus arrhythmia Left axis deviation Low voltage QRS Poor R wave progression, consider anterior FL vs. lead placement vs. LVH Abnormal ECG When compared with ECG of 26-Jan-2023 11:48, T wave amplitude has decreased in Anterior leads Confirmed by Alessandro Denis ([id number] on 04/28/2025 9:58:23 PM Referred By: Confirmed By: Alessandro Denis
== END 2025-04-28 19:51 | disposition home or self-care (01) | DRG 644 ==
LOC: ED 17:05 → SUATTDRO 20:31 → INTOOBSV 20:31 → 2N 20:31